=== PATIENT | female | born 1985 | race Two or more races ===

== ENCOUNTER 2016-11-21 13:07 | Emergency (ER) | payer MEDICAID ==
[~2016-11-21] VITALS: Ht 162.6 cm; Wt 104.3 kg
[2016-11-21] MEDS ORDERED: ALBU2.5V7 IH (13:18)
[2016-11-21] MEDS ORDERED: LORA10CA PO (13:18)
--- NOTE | 2016-11-21 14:41 | NUR ---
PT IS IN ROOM #1A. DR ABRAHAM EVALUATED THE PT.
[2016-11-21] MEDS ORDERED: ACETAMINOPHEN ES 500 MG TABLET PO ONE (16:30)
--- NOTE | 2016-11-21 16:35 | NUR ---
pt was d/c to home. d/c instructions given to the pt by dr rodriguez.
[2016-11-21 16:37] VITALS: BP 125/81
[2016-11-21] MEDS ORDERED: ACETAMINOPHEN ES 500 MG TABLET ONE (16:45)
== END 2016-11-21 16:37 | disposition home or self-care (01) ==
LOC: ER 13:07
DX: M54.2 Cervicalgia (principal); J45.909 Unspecified asthma, uncomplicated; R07.0 Pain in throat; Z90.49 Acquired absence of other specified parts of digestive tract; Z88.1 Allergy status to other antibiotic agents
CPT/HCPCS: 70360; A4663